=== PATIENT | male | born 1985 | race Caucasian/White ===

== ENCOUNTER 2021-09-02 07:58 | Day surgery (SDC) | payer OTHER ==
[~2021-09-02] VITALS: Ht 175.3 cm; Wt 98.9 kg
[2021-09-02] VITALS (124 sets, daily range): BP systolic 89–190; BP diastolic 37–164
[2021-09-02] MEDS ORDERED: CITALOPRAM40 M1 PO (09:05)
[2021-09-02] MEDS ORDERED: PREVACID30 M3 PO (09:06)
[2021-09-02] MEDS ORDERED: HYDROCHLOROT25 MG PO (09:06)
[2021-09-02] MEDS ORDERED: IMITREX25 MG PO (09:06)
[2021-09-02] MEDS ORDERED: TOPIRAMATE50 MG PO (09:06)
[2021-09-02] MEDS ORDERED: TAMSULOSIN0.4 MG PO (09:07)
[2021-09-02] MEDS ORDERED: FUROSEMIDE20 MG PO (09:07)
[2021-09-02] MEDS ORDERED: PROAIR HFA108 MCG/AC IN (09:07)
[2021-09-02] MEDS ORDERED: HYDROXYZ HCL25 MG PO (09:08)
[2021-09-02] MEDS ORDERED: DICYCLOMINE10 MG PO (09:08)
[2021-09-02] MEDS ORDERED: ZOFRAN4 MG/TAB PO (09:09)
[2021-09-02] MEDS ORDERED: GABAPENTIN100 MG PO (09:09)
[2021-09-02 09:38] LABS: HEMATOCRIT 36.1 % (39.0-50.0); HEMOGLOBIN 10.9 g/dl (14.0-18.0); IMMATURE GRANULOCYTES 0.3 % (0.0-5.0); MEAN CELL VOLUME 91.2 fL CALC (80.0-100.0); MEAN CORPUSCULAR HGB 27.5 pG CALC (26.0-32.0); MEAN CORPUSCULAR HGB CONC 30.2 g/dL CAL (32.0-36.0); NEUT# 3.58 thou/uL (1.82-7.42); RED BLOOD COUNT 3.96 mill/uL (4.70-6.10); RED CELL DISTRI WIDTH 15.3 % (11.5-15.5)
[2021-09-02 10:02] LABS: ALBUMIN 3.9 g/dL (3.2-5.0); ALKALINE PHOSPHATASE 87 u/l (38-126); ANION GAP 12 (6-22 (CALC)); BILIRUBIN, TOTAL 0.5 mg/dL (0.0-1.4); BUN 10 mg/dL (9-20); BUN/CREATININE RATIO 9 (12-20 (CALC)); CARBON DIOXIDE 27 mmol/l (22-30); CHLORIDE 101 mmol/l (95-108); CREATININE 1.1 mg/dL (0.7-1.3); GFR > 60 ML/MIN (>=60 (CALC)); GFR FOR AFR.AMER. > 60 ML/MIN (>=60 (CALC)); POTASSIUM 3.4 mmol/l (3.5-5.1); SGOT/AST 73 u/l (17-59); SODIUM 137 mmol/l (137-146); TOTAL PROTEIN 7.2 g/dL (6.3-8.2)
[2021-09-02] MEDS ORDERED: CLONIDINE0.1 MG PO (15:11)
[2021-09-02] MEDS ORDERED: KLONOPIN0.5 MG PO (15:11)
[2021-09-02] MEDS ORDERED: NALTREXONE50 MG PO (15:11)
[2021-09-03 02:49] VITALS: BP 128/75
[2021-09-03 05:35] LABS: HEMATOCRIT 36.2 % (39.0-50.0); HEMOGLOBIN 11.6 g/dl (14.0-18.0); IMMATURE GRANULOCYTES 0.2 % (0.0-5.0); MEAN CELL VOLUME 88.9 fL CALC (80.0-100.0); MEAN CORPUSCULAR HGB 28.5 pG CALC (26.0-32.0); NEUT# 8.45 thou/uL (1.82-7.42); RED BLOOD COUNT 4.07 mill/uL (4.70-6.10); RED CELL DISTRI WIDTH 15.5 % (11.5-15.5)
[2021-09-03 05:47] LABS: ALBUMIN 3.8 g/dL (3.2-5.0); ALKALINE PHOSPHATASE 92 u/l (38-126); ANION GAP 13 (6-22 (CALC)); BILIRUBIN, TOTAL 0.7 mg/dL (0.0-1.4); BUN 6 mg/dL (9-20); BUN/CREATININE RATIO 6 (12-20 (CALC)); CARBON DIOXIDE 22 mmol/l (22-30); CHLORIDE 111 mmol/l (95-108); CREATININE 0.9 mg/dL (0.7-1.3); GFR > 60 ML/MIN (>=60 (CALC)); GFR FOR AFR.AMER. > 60 ML/MIN (>=60 (CALC)); MAGNESIUM 2.4 mg/dL (1.6-2.3); POTASSIUM 3.9 mmol/l (3.5-5.1); SGOT/AST 52 u/l (17-59); SODIUM 142 mmol/l (137-146)
[2021-09-03 08:57] VITALS: BP 121/54
[2021-09-03 09:02] VITALS: BP 121/54
== END 2021-09-03 18:57 | disposition home or self-care (01) | DRG 897 ==
LOC: ANR 07:58 → MS2 08:00 → ANR 08:27
PROVIDERS: ATTEND Anesthesiology
DX: F11.20 Opioid dependence, uncomplicated (principal)
CPT/HCPCS: J2060; J2354